=== PATIENT | female | born 1965 | race Caucasian/White ===

== ENCOUNTER 2017-01-29 16:39 | Emergency (ER) | payer BC ==
[2017-01-29 18:46] VITALS: BP 141/97
--- NOTE | 2017-01-29 20:12 | RAD ---
INDICATION: Knee pain 2 days after lifting a heavy object. COMPARISON: None TECHNIQUE: 4 view radiograph of the left knee. FINDINGS: The visualized bones are well-corticated and properly aligned. The joint spaces are properly maintained. There is a small suprapatellar joint effusion. There is no acute fracture, dislocation or other focal bony abnormality. IMPRESSION: Small suprapatellar joint effusion in this otherwise nonacute knee.
--- NOTE | 2017-01-29 20:58 | UC ---
william Field Timothy, scribed for Amena Cueto MD on 01/29/17 at 1856 . Knee Pain HPI - HPI Summary HPI Summary: Antonia Hadley is a 51 yo female presenting to [facility] with 8/10 sharp, left knee pain for the past 2 weeks. Pt states that yesterday while walking down a flight of stairs carrying a box when she felt her left knee "pop" and since then it has been unable to bear weight. Pt is currently using her mother's cane to assist her in walking. Her is present in room. Pt's mother . She states she has a Hx of torn cartilage in her left knee. Last night she self-medicated with 4x Naproxen with no relief. She declines pain med on first encounter. She states she is a recovering alcoholic. Her MHx includes EtOH abuse, tobacco use, cholecystectomy 2001. - History of Current Complaint Chief Complaint: UCLowerExtremity Stated Complaint: KNEE PAIN Time Seen by Provider: 01/29/17 19:10 Hx Obtained From: Patient Hx Last Menstrual Period: irreg, 01/17/14 Onset/Duration: Sudden Onset, Lasting Days, Still Present, Worse Since - 01/28/17 Severity Initially: Moderate Severity Currently: Moderate Location Of Injury: left knee Pain Intensity: 8 Pain Scale Used: 0-10 Numeric Character: Sharp Aggravating Factor(s): Movement, Weight Bearing, Prolonged Standing, Stairs Alleviating Factor(s): Rest Associated Signs And Symptoms: Positive: Swelling, Bruising Able to Bear Weight: No Related History: Similar Episode/Dx as - torn cartilage - Allergies/Home Medications Allergies/Adverse Reactions: Allergies Allergy/AdvReac Type Severity Reaction Status Date / Time No Known Allergies Allergy Verified 07/03/14 10:43 Home Medications: Home Medications Naproxen Sodium-Diphenhydramin [Aleve PM 220-25 mg] 4 tab 01/29/17 [History] PMH/Surg Hx/FS Hx/Imm Hx Previously Healthy: No - recovering alcoholic Endocrine History Of: Denies: Diabetes, Thyroid Disease Cardiovascular History Of: Denies: Cardiac Disorders, Hypertension Respiratory History Of: Denies: COPD, Asthma GI/ History Of: Denies: Ulcer - Surgical History Surgical History: Yes Surgery Procedure, Year, and Place: gallbladder removed 2001. - Family History Known Family History: Positive: Diabetes, Renal Disease - with dialysis, mother , who 01/28/17, Other - arthritis - Social History Lives: With Family Alcohol Use: None Alcohol Amount: recovering alcoholic Substance Use Type: None Smoking Status (MU): Former Smoker Type: Cigarettes, eCigarettes Amount Used/How Often: "quitting" smoked some 01/27/14 Review of Systems Constitutional: Negative Skin: Negative Eyes: Negative ENT: Negative Respiratory: Negative Cardiovascular: Negative Gastrointestinal: Negative Genitourinary: Negative Motor: Negative Neurovascular: Negative Musculoskeletal: Other: - left knee pain and swelling Neurological: Negative Psychological: Negative All Other Systems Reviewed And Are Negative: Yes Physical Exam Triage Information Reviewed: Yes Appearance: Well-Appearing, Well-Nourished, Pain Distress Vital Signs: Initial Vital Signs Temp 99.4 F 01/29/17 17:16 Pulse 81 01/29/17 17:16 Resp 18 01/29/17 17:16 BP 130/54 01/29/17 17:16 Pulse Ox 100 01/29/17 17:16 Vital Signs Reviewed: Yes Eyes: Positive: Conjunctiva Clear ENT Exam: Normal ENT: Positive: Hearing grossly normal. Negative: Muffled/hoarse voice Neck: Positive: Supple, Nontender Respiratory: Positive: Lungs clear, Normal breath sounds, No respiratory distress Cardiovascular: Positive: RRR, No Murmur, Pulses Normal, Brisk Capillary Refill , Other: - distal pulses and sensation intact in bilateral lower extremities. Musculoskeletal: Positive: Strength Limited @ - LLE, ROM Limited @ - LLE -, Other: - pain at the medial and posterior aspects of her left knee. Ligaments stable. Neurological: Positive: Alert, Muscle Tone Normal Psychological Exam: Normal Psychological: Positive: Age Appropriate Behavior Skin: Positive: Other - swelling of the left knee without erythema, some purple ecchymosis over the patella 2 cm in diameter. Negative: rashes Diagnostics - Radiology L knee XR Xray Interpretation: No Acute Changes - IMPRESSION: Small suprapatellar joint effusion in this otherwise nonacute knee. Radiology Interpretation Completed By: Radiologist Re-Evaluation - Re-Evaluation First Eval Re-Evaluation Time: 19:49 Change: Unchanged Comment: Discussed preliminary results of imaging study with Pt. Second Eval Re-Evaluation Time: 20:13 Change: Unchanged Comment: Discussed imaging study results, Pt is agreeable to be discharged. Third Eval Re-Evaluation Time: 20:17 Change: Unchanged Comment: Further discussed imaging results and course of Tx. Knee Pain Course/Dx - Course Course Of Treatment: Antonia Hadley is a 51 yo female presenting to [facility] with 8/ 10 left knee pain for the past 2 weeks, worse since 01/28/17 with a "pop" and now unable to bear weight. Pt is declining pain medication at this time. Her medication list has been reviewed this visit. Her L knee XR suggests a small suprapatellar joint effusion in the otherwise nonacute knee. After clinical examination and review of her imaging study, she will be discharged home with elevated BP without diagnosis of HTN and left knee sprain with appropriate instructions and follow up. - Differential Dx/Diagnosis Differential Diagnosis/HQI/PQRI: Fracture (Closed), Sprain, Strain Provider Diagnoses: elevated blood pressure without diagnosis of HTN, left knee sprain. Discharge - Discharge Plan Condition: Stable Disposition: HOME Patient Education Materials: Knee Sprain (ED), Chronic Hypertension (ED), Swollen Knee Joint (ED) Forms: *Work Release Referrals: Rosa Santos MD [Primary Care Provider] - 2 Days Dayana Crow MD [Medical Doctor] - 2 Days Additional Instructions: Dr. Cueto recommends that you take only acetaminophen or Tylenol as directed for pain, since ibuprofen and naproxen and that class of drugs can cause kidney disease. You may wear the douglas bandage for comfort for at least a week. Please follow up with your primary care physician and the orthopedist provided regarding your visit to urgent care today. Return to urgent care with any new or worsening symptoms. The documentation as recorded by the william jimenez Timothy accurately reflects the service I personally performed and the decisions made by , Amena Cueto MD.
== END 2017-01-29 20:26 | disposition home or self-care (01) ==
LOC: UCEAST 16:39
DX: S83.92XA Sprain of unspecified site of left knee, initial encounter (principal); R03.0 Elevated blood-pressure reading, without diagnosis of hypertension; W10.9XXA Fall (on) (from) unspecified stairs and steps, initial encounter; Y92.9 Unspecified place or not applicable; Z87.891 Personal history of nicotine dependence
CPT/HCPCS: 99212; G0463

== ENCOUNTER 2017-04-11 13:20 | Emergency (ER) | payer BC ==
[2017-04-11 14:05] VITALS: BP 153/61
--- NOTE | 2017-04-11 14:46 | UC ---
Throat Pain/Nasal Florencio HPI - HPI Summary HPI Summary: compalint of nasal congestion and sinus pressure that started approx 10 days ago for the last 2 days she is having pain in her face, teeth ,and right side of head denies fever and chills not taking any medications for symptoms - History of Current Complaint Chief Complaint: UCRespiratory Stated Complaint: SINUS ISSUE Time Seen by Provider: 04/11/17 14:41 Hx Obtained From: Patient Hx Last Menstrual Period: irreg, 01/17/14 - Allergies/Home Medications Allergies/Adverse Reactions: Allergies Allergy/AdvReac Type Severity Reaction Status Date / Time No Known Allergies Allergy Verified 04/11/17 14:05 PMH/Surg Hx/FS Hx/Imm Hx Previously Healthy: Yes - Surgical History Surgical History: Yes Surgery Procedure, Year, and Place: gallbladder removed 2001. - Family History Known Family History: Positive: Diabetes, Renal Disease - with dialysis, mother , who 01/28/17, Other - arthritis Negative: Cardiac Disease, Hypertension - Social History Occupation: Employed Full-time Lives: With Family Alcohol Use: None Alcohol Amount: recovering alcoholic Substance Use Type: Marijuana Substance Use Comment - Amount & Last Used: daily usage along with vaping Smoking Status (MU): Former Smoker Type: Cigarettes, eCigarettes Amount Used/How Often: "quitting" smoked some 01/27/14 Cessation Counseling: Patient Advised to Stop Review of Systems Constitutional: Negative Skin: Negative Eyes: Negative ENT: Sinus Congestion, Sinus Pain/Tenderness Respiratory: Negative Cardiovascular: Negative Gastrointestinal: Negative Genitourinary: Negative Motor: Negative Neurovascular: Negative Musculoskeletal: Negative Neurological: Headache Psychological: Negative All Other Systems Reviewed And Are Negative: Yes Physical Exam Triage Information Reviewed: Yes Appearance: No Pain Distress, Well-Nourished Vital Signs: Initial Vital Signs Temp 99 F 04/11/17 14:00 Pulse 89 04/11/17 14:00 Resp 16 04/11/17 14:00 BP 153/61 04/11/17 14:00 Pulse Ox 98 04/11/17 14:00 Vital Signs Reviewed: Yes Eyes: Positive: Conjunctiva Clear ENT: Positive: Pharyngeal erythema, Nasal congestion, TMs normal, Other: - frontal sinus tenderness Neck: Positive: No Lymphadenopathy Respiratory: Positive: Lungs clear, Normal breath sounds, No respiratory distress, No accessory muscle use Cardiovascular: Positive: RRR, No Murmur, Pulses Normal Abdomen Description: Positive: Nontender, Soft Bowel Sounds: Positive: Present Musculoskeletal: Positive: No Edema Neurological: Positive: Alert Psychological Exam: Normal Skin Exam: Normal Throat Pain/Nasal Course/Dx - Differential Dx/Diagnosis Differential Diagnosis/HQI/PQRI: Sinusitis, URI Provider Diagnoses: sinusitis Discharge - Discharge Plan Condition: Stable Disposition: HOME Prescriptions: Amoxicillin/Clavulanate TAB* [Augmentin TAB 875*] 875 mg PO BID #20 tab Patient Education Materials: Sinusitis (ED) Referrals: Rosa Santos MD [Primary Care Provider] - Additional Instructions: Please start antibiotic as directed Increase fluids and rest Take acetaminophen or ibuprofen for fever or pain Please review your discharge instructions. If your symptoms do not improve please call your primary care provider or return to urgent care. Your blood pressure is elevated. Please contact your primary care provider within 1 -4 weeks for further evaluation.
== END 2017-04-11 15:03 | disposition home or self-care (01) ==
LOC: UCEAST 13:20
DX: J32.9 Chronic sinusitis, unspecified (principal); Z72.0 Tobacco use
CPT/HCPCS: 99212; G0463

== ENCOUNTER 2017-10-08 09:06 | Emergency (ER) | payer BC ==
[2017-10-08 09:15] VITALS: BP 121/81
--- NOTE | 2017-10-08 09:43 | UC ---
Linus Field Julia, scribed for Grant Sumner MD on 10/08/17 at 0931 . General HPI - HPI Summary HPI Summary: This patient is a 52 year old F presenting to [facility] with a chief complaint of generalized illness since late August 2017. Patient reports pressurized temporal and occipital headache, sinus pain, fatigue, body aches, back pain, non -productive cough, ear ache, and nausea. Symptoms aggravated by lights. She states her headache and sinus symptoms are worse than her cough. She has not been using medication for her headache - History of Current Complaint Chief Complaint: UCRespiratory Stated Complaint: SINUS CONGESTION, AND COUGH Time Seen by Provider: 10/08/17 09:20 Hx Obtained From: Patient Hx Last Menstrual Period: irreg, 01/17/14 Onset/Duration: Lasting Weeks, Still Present Timing: Constant Pain Intensity: 0 Pain Location at: temporal/occipital headache sinus pain Character: pressure Aggravating: lights Associated Signs & Symptoms: Positive: Other - headache, sinus pain, fatigue, body aches, back pain, non-productive cough, ear ache, and nausea - Allergy/Home Medications Allergies/Adverse Reactions: Allergies Allergy/AdvReac Type Severity Reaction Status Date / Time No Known Allergies Allergy Verified 10/08/17 09:15 PMH/Surg Hx/FS Hx/Imm Hx Other History Of: Negative For: Hepatitis C - Surgical History Surgical History: Yes Surgery Procedure, Year, and Place: gallbladder removed 2001. - Family History Known Family History: Positive: Diabetes, Renal Disease - with dialysis, mother , who 01/28/17, Other - arthritis Negative: Cardiac Disease, Hypertension - Social History Alcohol Use: None Alcohol Amount: recovering alcoholic Substance Use Type: Marijuana Substance Use Comment - Amount & Last Used: daily usage along with vaping nicotine Smoking Status (MU): Former Smoker Type: Cigarettes, eCigarettes Amount Used/How Often: "quitting" smoked some 01/27/14 Review of Systems Constitutional: Fatigue, Other - body aches ENT: Ear Ache Respiratory: Cough Gastrointestinal: Nausea Musculoskeletal: Other: - back pain Neurological: Headache All Other Systems Reviewed And Are Negative: Yes Physical Exam Triage Information Reviewed: Yes Vital Signs: Initial Vital Signs Temp 99.6 F 10/08/17 09:09 Pulse 90 10/08/17 09:09 Resp 16 10/08/17 09:09 BP 121/81 01/29/18 09:09 Pulse Ox 99 10/08/17 09:09 Vital Signs Reviewed: Yes - Additional Comments General: mild ill appearance, no pain distress Skin: warm, color reflects adequate perfusion, dry Head: normal Eyes: EOMI, [place] ENT: normal, TM normal Neck: supple, nontender Respiratory: CTA, breath sounds present Cardiovascular: RRR Abdomen: soft, nontender Bowel: present Musculoskeletal: normal, strength/ROM intact Neurological: normal, sensory/motor intact, A&O x3 Psychological: affect/mood appropriate Course/Dx - Course Course Of Treatment: PATIENT REPORTS LAST SINUSITS ABX (AUGMENTIN) UPSET HER STOMACH; THEREFORE RX DOXY THIS TIME. - Differential Dx - Multi-Symptom Provider Diagnoses: SINUSITIS Discharge - Discharge Plan Condition: Stable Disposition: HOME Prescriptions: DOXYcycline CAP(*) [DOXYcycline 100MG CAP(*)] 100 mg PO BID #20 cap Mometasone Furoate (Nasal) [Nasonex] 2 spray NASAL DAILY #1 bottle Patient Education Materials: Sinusitis (ED) Referrals: [facility] [place] [facility]IAN REFERRAL [Outside] No Primary Care Phys,NOPCP [Primary Care Provider] - Additional Instructions: FOLLOW UP WITH YOUR DOCTOR. GET RECHECKED FOR ANY WORSENING OF YOUR CONDITION OR QUESTIONS OR CONCERNS. The documentation as recorded by the Linus jimenez Julia accurately reflects the service I personally performed and the decisions made by me, Grant Sumner MD.
== END 2017-10-08 09:52 | disposition home or self-care (01) ==
LOC: UCEAST 09:06
DX: J32.9 Chronic sinusitis, unspecified (principal); F12.90 Cannabis use, unspecified, uncomplicated; Z87.891 Personal history of nicotine dependence; Z90.49 Acquired absence of other specified parts of digestive tract
CPT/HCPCS: 99212; G0463

== ENCOUNTER 2017-10-11 08:37 | Emergency (ER) | payer BC ==
[2017-10-11 08:59] VITALS: BP 130/72
[2017-10-11] MEDS ORDERED: guaiFENesin LIQ* 100 MG/5 ML UDC PO ONE (09:06)
--- NOTE | 2017-10-11 09:34 | RAD ---
INDICATION: Cough COMPARISON: None TECHNIQUE: PA and lateral dual-energy views were obtained. FINDINGS: Bones/Soft Tissues: There are no acute bony findings. Cardiomediastinal: The cardiomediastinal silhouette is normal. Lungs: There are no infiltrates. Pleura: There are no pleural effusions. Other: None IMPRESSION: NORMAL CHEST.
--- NOTE | 2017-10-12 18:45 | UC ---
Diane Field Nilda, scribed for Paul Jimenez MD on 10/11/17 at 0914 . Respiratory Complaint HPI - HPI Summary HPI Summary: This patient is a 52 year old F presenting to [facility] accompanied by family with a chief complaint of constant malaise since before (approximately 1 month ago). The patient rates the pain 3/10 in severity. Symptoms aggravated and alleviated by nothing. Patient reports fever, cough, rhinorrhea, sneezing, myalgia, fatigue, vomiting (1x today), and CP and back pain with coughing. Pt states she was recently Dx and treated for sinus infection without relief. - History of Current Complaint Chief Complaint: UCGeneralIllness Stated Complaint: COUGH, VOMITING Time Seen by Provider: 10/11/17 09:00 Hx Obtained From: Patient Hx Last Menstrual Period: irreg, 01/17/14 Onset/Duration: Sudden Onset, Lasting Weeks, Still Present Timing: Constant Severity Currently: Mild Pain Intensity: 3 Pain Scale Used: 0-10 Numeric Character: Cough: Nonproductive Aggravating Factors: Nothing Alleviating Factors: Nothing Associated Signs And Symptoms: Positive: Fever, Nasal Congestion, Sinus Discomfort - Allergies/Home Medications Allergies/Adverse Reactions: Allergies Allergy/AdvReac Type Severity Reaction Status Date / Time No Known Allergies Allergy Verified 10/11/17 08:59 PMH/Surg Hx/FS Hx/Imm Hx Respiratory History: Bronchitis Other History Of: Negative For: Hepatitis C - Surgical History Surgical History: Yes Surgery Procedure, Year, and Place: gallbladder removed 2001. - Family History Known Family History: Positive: Diabetes, Renal Disease - with dialysis, mother , who 01/28/17, Other - arthritis Negative: Cardiac Disease, Hypertension - Social History Alcohol Use: None Alcohol Amount: recovering alcoholic Substance Use Type: Marijuana Substance Use Comment - Amount & Last Used: daily usage along with vaping nicotine Smoking Status (MU): Former Smoker Type: Cigarettes, eCigarettes Amount Used/How Often: "quitting" smoked some 01/27/14 Household Exposure Type: Cigarettes Review of Systems Constitutional: Fever, Fatigue, Other - malaise ENT: Nasal Discharge, Other - sneezing Respiratory: Cough Cardiovascular: Chest Pain - with cough Gastrointestinal: Vomiting Musculoskeletal: Myalgia, Other: - back pain with cough All Other Systems Reviewed And Are Negative: Yes Physical Exam Triage Information Reviewed: Yes Vital Signs: Initial Vital Signs Temp 100.2 F 10/11/17 08:53 Pulse 85 10/11/17 08:53 Resp 20 10/11/17 08:53 BP 130/72 10/11/17 08:53 Pulse Ox 97 10/11/17 08:53 Vital Signs Reviewed: Yes - Additional Comments VITAL SIGNS: Reviewed. GENERAL: Patient is a well developed and nourished F who is lying comfortable in the stretcher. Patient is not in any acute respiratory distress. HEAD AND FACE: Normocephalic EYES: PERRLA, EOMI x 2. EARS: Hearing grossly intact. MOUTH: Oropharynx within normal limits. NOSE: Nasal mucosa erythematous NECK: Supple, trachea is midline, no adenopathy, no JVD, no carotid bruit. CHEST: Symmetric, no tenderness at palpation LUNGS: Clear to auscultation bilaterally. No wheezing or crackles. CVS: Regular rate and rhythm, S1 and S2 present, no murmurs or gallops appreciated. ABDOMEN: Soft, non-tender. Bowel sounds are normal. No abdominal abnormal pulsations. EXTREMITIES: Full ROM in all major joints, no edema, no cyanosis or clubbing. NEURO: Alert and oriented x 3. No acute neurological deficits. Speech is normal and follows commands. SKIN: Dry and warm UC Diagnostic Evaluation - Laboratory O2 Sat by Pulse Oximetry: 97 - Radiology Radiology Interpretation Completed By: Radiologist - CXR reveals normal chest, per radiologist. Dr. Jimenez has reviewed this radiology report. Re-Evaluation - Re-Evaluation First Eval Re-Evaluation Time: 09:39 Comment: Reviewed D/C plan and results with pt. Respiratory Course/Dx - Course Course Of Treatment: This patient is a 52 year old F presenting to [facility] accompanied by family with a chief complaint of constant malaise since before (approximately 1 month ago). The patient rates the pain 3/10 in severity. Symptoms aggravated and alleviated by nothing. Patient reports fever, cough, rhinorrhea, sneezing, myalgia, fatigue, vomiting (1x today), and CP and back pain with coughing. Pt states she was recently Dx and treated with sinus infection without relief. CXR negative for acute pathology. Rapid strep negative. Influenza A negative and B positive. I will prescribe antitussive medications and tamiflu. She was instructed to increase water intake. I discussed all the findings and test results with the patient. Pt was instructed to return to the urgent care or go to ER immediately if any of the symptoms return or worsens. Plan of care was discussed with the patient and pt understands and agrees. All questions were answered to patient satisfaction. There were no further complaints or concerns. - Differential Dx/Diagnosis Differential Diagnosis/HQI/PQRI: Bronchitis, Influenza, Laryngitis, Sinusitis Provider Diagnoses: Bronchitis, Influenza, Sinusitis, Laryngitis. Discharge - Discharge Plan Condition: Stable Disposition: HOME Prescriptions: Oseltamivir CAP* [Tamiflu CAP*] 75 mg PO BID #10 cap Promethazine W/Codeine [Promethazine/Codeine] 5 ml PO TID PRN #90 ml MDD 15 ml PRN Reason: Cough Patient Education Materials: Influenza (DC), Upper Respiratory Infection (DC), Acute Bronchitis (ED) Referrals: No Primary Care Phys,NOPCP [Primary Care Provider] - [facility] [place] PHYS[facility]IAN REFERRAL [Outside] Additional Instructions: Return to the urgent care or go to ER immediately if any of the symptoms return or worsens The documentation as recorded by the Diane jimenez Nilda accurately reflects the service I personally performed and the decisions made by me, Paul Jimenez MD.
== END 2017-10-11 09:56 | disposition home or self-care (01) ==
LOC: UCEAST 08:37
DX: J40 Bronchitis, not specified as acute or chronic (principal); J11.1 Influenza due to unidentified influenza virus with other respiratory manifestations; J32.9 Chronic sinusitis, unspecified; Z90.49 Acquired absence of other specified parts of digestive tract; F12.90 Cannabis use, unspecified, uncomplicated; Z87.891 Personal history of nicotine dependence
CPT/HCPCS: 71046; 87502; 87651; 99212; A9270-GY; G0463